=== PATIENT | female | born 1990 | race Caucasian/White ===

== ENCOUNTER 2018-09-02 13:42 | Outpatient (CLI) | payer OTHER ==
[2018-09-02] MEDS ORDERED: IOHEXOL 50 ML IV ONE (14:15)
== END 2018-09-02 19:51 | disposition home or self-care (01) ==
LOC: SRD 13:42
PROVIDERS: ATTEND Obstetrics & Gynecology
DX: N80.9 Endometriosis, unspecified (principal); N97.9 Female infertility, unspecified
CPT/HCPCS: 74740; C1751; Q9967